=== PATIENT | male | born 1940 | race Two or more races ===

== ENCOUNTER 2022-09-18 19:56 | Emergency (ER) | payer MEDICARE, BC ==
[~2022-09-18] VITALS: Ht 175.3 cm; Wt 99.8 kg
--- NOTE | 2022-09-18 21:05 | NUR ---
Dr. Desir at bedside for MSE.
[2022-09-18 21:39] LABS: HEMATOCRIT 36.6 % (36.7-47.1); MEAN CORPUSCULAR HEMOGLOBIN 26.8 uug (23.8-33.4); MEAN CORPUSCULAR VOLUME 81.9 fL (73.0-96.2); PLATELET COUNT (AUTO) 198 K/uL (152-348)
[2022-09-18 21:48] LABS: *BILIRUBIN,URIN NEGATIVE (NEGATIVE); *BLOOD, URINE 2+ (NEGATIVE); *CLARITY,URINE CLEAR (CLEAR); *COLOR,URINE YELLOW (YELLOW); *KETONES,URINE NEGATIVE (NEGATIVE); CREATININE 1.2 mg/dL (0.6-1.3); LEUKOCYTE ESTERASE ,URINE NEGATIVE (NEGATIVE); NITRITE, URINE NEGATIVE (NEGATIVE); PH,URINE 5.5 (5.0-8.0); POTASSIUM 4.6 mmol/L (3.5-5.1); UGLUCOSE NEGATIVE (NEGATIVE)
[2022-09-18 22:00] LABS: BILIRUBIN,DIRECT 0.1 mg/dL (0.0-0.2); BILIRUBIN,TOTAL 0.5 mg/dL (0.2-1.0); TOTAL PROTEIN, SERUM 7.2 g/dL (6.4-8.2)
[2022-09-18 22:03] LABS: NEUTROPHILS % (MANUAL) 0 % (42-75)
[2022-09-18] MEDS ORDERED: IV NORMAL SALINE 1000 ML BAG IV ONE (22:30)
--- NOTE | 2022-09-18 22:50 | NUR ---
Patient discharged to home in stable condition. Written and verbal after care instructions given. Patient verbalizes understanding of instructions. Stressed follow up or return to ER for worsening s/s. Patient out of ER with steady gait, no acute signs of distress, VSS, all belongings taken.
[2022-09-18 22:54] VITALS: BP 130/70
[2022-09-19 01:16] LABS: BACTERIA,URINE FEW /HPF (NONE SEEN); SQUAMOUS EPITHELIAL CELL,UR MODERATE /HPF (NONE SEEN); WBC,URINE 0-3 /HPF (0-3)
== END 2022-09-18 22:55 | disposition home or self-care (01) ==
LOC: ER 19:59
DX: R50.9 Fever, unspecified (principal); E86.0 Dehydration; R31.29 Other microscopic hematuria; R07.89 Other chest pain; F17.210 Nicotine dependence, cigarettes, uncomplicated; Z90.49 Acquired absence of other specified parts of digestive tract; Z87.442 Personal history of urinary calculi; Z20.822 Contact with and (suspected) exposure to COVID-19
CPT/HCPCS: 36415; 70030-TC; 71045; 85025; 87040; A4663